=== PATIENT | male | born 1950 | race Caucasian/White ===

== ENCOUNTER 2020-09-22 10:34 | Day surgery (SDC) | payer OTHER, SELFPAY ==
[~2020-09-22] VITALS: Ht 177.8 cm; Wt 99.8 kg
[~2020-09-22 10:34] MED LIST: CEFAZOLIN SOD 2 GM in D5W 50 ML IV ONE
[2020-09-22] MEDS ORDERED: POLYMYXIN 500,000/BACIT.10,000 UNITS in NS IRR 1 L IR ONE (13:52)
[2020-09-22] MEDS ORDERED: METOCLOPRAMIDE HCL 10 MG/2 ML VIAL IVP PRN (15:30)
[2020-09-22] MEDS ORDERED: ONDANSETRON HCL 4 MG/2 ML VIAL IVP PRN (15:30)
[2020-09-22] MEDS ORDERED: fentaNYL CITRATE/PF 100 MCG/2 ML AMP IVP PRN ×2 (15:30)
[2020-09-22] MEDS ORDERED: ONDANSETRON HCL 4 MG/2 ML VIAL ONE (16:56)
[2020-09-22] MEDS ORDERED: METOCLOPRAMIDE HCL 10 MG/2 ML VIAL ONE (17:57)
[2020-09-22 19:44] VITALS: BP_SYST 131
== END 2020-09-22 20:00 | disposition home or self-care (01) ==
LOC: SDS 10:34 → SMU 10:36 → SDS 16:11
PROVIDERS: ATTEND Surgery
DX: K40.20 Bilateral inguinal hernia, without obstruction or gangrene, not specified as recurrent (principal); I10 Essential (primary) hypertension; E11.9 Type 2 diabetes mellitus without complications; Z79.899 Other long term (current) drug therapy
CPT/HCPCS: 36415; 49650; 82962; 87426; C1727; C1781; J0690; J2405; J2765; J7060; S2900